=== PATIENT | male | born 1935 | race Caucasian/White ===

== ENCOUNTER 2017-07-31 14:04 | Emergency (ER) | payer OTHER ==
[~2017-07-31] VITALS: Ht 177.8 cm; Wt 71.7 kg
--- NOTE | 2017-07-31 14:04 | NUR ---
[id number] [place] [address] [place] [address] FOR AMS, BS-200, PER REPORT PT IS USUALLY A/OX3 IN THE FACILITY. LAST KNOW WELL TIME 1100. PT PLACED ON CONT CARDIAC AND POX MONITOR. TACHYCARDIC AT 140'S, 90% O2 SAT RA. SKIN IS WARM TO TOUCH, FEBRILE T-103.8 RECTALLY. ALL NEEDS ARE ATTENDED, KEPT COMFORTABLE. PENDING ER MD EVALUATION
--- NOTE | 2017-07-31 14:30 | NUR ---
18G RIGHT AC IV STARTED
--- NOTE | 2017-07-31 14:46 | NUR ---
IN AND OUT BROCK CATH DONE, URINE SAMPLE OBTAINED AND SENT TO LAB
[2017-07-31 14:55] LABS: APPEARANCE,URINE Clear (CLEAR); BILIRUBIN,URINE Negative (NEGATIVE); BLOOD, URINE Trace-lysed Ery/uL (NEGATIVE); COLOR,URINE Yellow (YELLOW); KETONES,URINE 15 (NEGATIVE); LEUKOCYTE ESTERASE ,URINE Negative (NEGATIVE); NITRITE, URINE Negative (NEGATIVE); PH,URINE 5.5 (5.0-8.0); PROTEIN,URINE Negative (NEGATIVE); UGLUCOSE Negative (NEGATIVE); UROBILINOGEN,URINE 0.2 EU/dL (0.2)
[2017-07-31 14:56] LABS: BASOPHILS # (AUTO) 0.5 /CMM (0.0-0.2); BASOPHILS % (AUTO) 2.4 % (0.0-2.0); HEMATOCRIT 33 % (39-51); HEMOGLOBIN 11.8 g/dL (13.5-17.5); LYMPHOCYTES # (AUTO) 0.4 /CMM (0.8-4.8); LYMPHOCYTES % (AUTO) 1.8 % (20.0-44.0); MEAN CORPUSCULAR HEMOGLOBIN 30 PG (26.0-33.0); MEAN CORPUSCULAR HGB CONC 35 g/dl (31.0-36.0); MEAN CORPUSCULAR VOLUME 85 fL (80-96); MONOCYTES % (AUTO) 10.2 % (2.0-12.0); NEUTROPHILS # (AUTO) 16.8 /CMM (1.8-8.9); NEUTROPHILS % (AUTO) 85.6 % (43.0-81.0); PLATELET COUNT (AUTO) 170 /CMM (150-450); RDW COEFFICIENT OF VARIATION 13.8 (11.5-15.0); RED BLOOD CELL COUNT(AUTO) 3.91 MIL/uL (4.5-6.0); WHITE BLOOD COUNT (AUTO) 19.7 K/uL (4.3-11.0)
[2017-07-31] MEDS ORDERED: IV NS 0.9% 1,000 ML BAG IV ONE (15:00)
[2017-07-31] MEDS ORDERED: ACETAMINOPHEN 650 MG/SUPP.RECT RC ONE ×2 (15:00→15:11)
[2017-07-31] MEDS ORDERED: VANCOMYCIN 1 GM in IV D5W 250 ML IV ONE (15:00)
[2017-07-31 15:03] LABS: BACTERIA,URINE None seen /HPF (None Seen); RBC,URINE 0-2 /HPF (0-2); SQUAMOUS EPITHELIAL CELL,UR Few /HPF (None Seen); WBC,URINE 0-2 /HPF (0-3)
[2017-07-31 15:04] LABS: CARBON DIOXIDE 22 mmol/L (21-32); CHLORIDE 101 mmol/L (98-107); CREATININE 1.9 mg/dL (0.6-1.3); GLUCOSE 163 mg/dL (74-106); POTASSIUM 3.9 mmol/L (3.5-5.1); SODIUM SERUM 136 mmol/L (136-145); UREA NITROGEN, BLOOD 31 mg/dL (7-18)
[2017-07-31 15:07] LABS: INR 1.06 (0.87-1.13)
[2017-07-31 15:10] LABS: ALANINE AMINOTRANSFERASE 29 U/L (12-78); ALBUMIN 3.5 g/dL (3.4-5.0); ALKALINE PHOSPHATASE 111 U/L (46-116); ASPARTATE AMINOTRANSFERASE 27 U/L (15-37); BILIRUBIN,DIRECT 0.2 mg/dL (0.0-0.2); BILIRUBIN,TOTAL 0.9 mg/dL (0.2-1.0); TOTAL PROTEIN, SERUM 7.7 g/dL (6.4-8.2)
[2017-07-31 15:12] LABS: TROPONIN I 0.021 ng/mL (0.00-0.056)
[2017-07-31] MEDS ORDERED: PIPERACILLIN /TAZOBACTAM 2.25 G in IV D5W 50 ML IV ONE (15:30)
[2017-07-31 15:31] LABS: ABG BASE EXCESS -0.6 mmol/L; ABG OXYGEN SATURATION 93.3 % (92.0-98.5); ABG PCO2 28.7 mmHg (35.0-45.0); ABG PH 7.498 (7.350-7.450); ABG PO2 69.2 mmHg (75.0-100.0); AaDO2 125.4 mmHg; COHb 0.9 % (0.5-1.5); O2Hb 92.5 % (94.0-97.0); SITE, ABG Right Radial; VENT MODE, BG NASAL CANNULA
[2017-07-31 15:38] LABS: BAND % (MANUAL) 5 % (0.0-5.0); LYMPHOCYTES % (MANUAL) 6 % (16-48); MONOCYTES % (MANUAL) 11 % (0-11.0); NEUTROPHILS % (MANUAL) 78 (42-76)
[2017-07-31] MEDS ORDERED: ASPI-1169 PO (15:44)
[2017-07-31] MEDS ORDERED: GLUC500T12 PO (15:44)
[2017-07-31] MEDS ORDERED: CRAN1CAP6 PO (15:44)
[2017-07-31] MEDS ORDERED: RAMI10CA PO (15:44)
--- NOTE | 2017-07-31 16:06 | NUR ---
DR GUTIERREZ CALLED, STUDY SPECIALIST STATED THAT HE GOT THE IMAGES VIA TEXT AND WILL CALL DR GERMAIN SOON HE STEP OUT OF SURGERY. DR GERMAIN AWARE
[2017-07-31] MEDS ORDERED: ACETAMINOPHEN 650 MG/SUPP.RECT RC PRN (18:00)
[2017-07-31] MEDS ORDERED: PIPERACILLIN /TAZOBACTAM 2.25 G in IV D5W 50 ML IV SCH (18:00)
[2017-07-31] MEDS ORDERED: ACETAMINOPHEN ES 500 MG TABLET PO PRN (18:00)
--- NOTE | 2017-07-31 20:10 | NUR ---
[facility] CALLED FOR INFO. [phone] FAX NUMBER; [phone] PHONE NUMBER
--- NOTE | 2017-07-31 20:20 | NUR ---
RT KELLER AT BEDSIDE TO SUCTION PATIENT.
--- NOTE | 2017-07-31 20:26 | NUR ---
REPORT NUMBER [id number]; PRESS NO. 1; EXT [phone]. PT TO GO TO ROOM [facility]9. [facility] TO ARRANGE FOR TRANSPORT.
--- NOTE | 2017-07-31 20:42 | NUR ---
REPORT GIVEN TO REGI STEVENSON AT [facility] FOR TRANSFER AND [facility].
[2017-07-31] MEDS ORDERED: PIPERACILLIN /TAZOBACTAM 2.25 G VIAL IV ONE (21:12)
[2017-07-31 21:29] VITALS: BP 103/66
--- NOTE | 2017-07-31 21:52 | NUR ---
ENDORSED CARE TO PRN AMBULANZ STAFF, PATIENT REMAINED ALERT AND RESPONSIVE.
--- NOTE | 2017-07-31 21:53 | NUR ---
DALLIN NOONAN STAFF RECORDED BLOOD PRESSURE AT 87/52, I VERIFIED BP AND REPORTED TO DR GERMAIN AND RECEIVED VERBAL ORDER OF 1 L NORMAL SALINE BOLUS FOR TRANSPORT. ALSO SPOKE WITH ROBERT CHARGE NURSE AT [facility] AND UPDATED HIM RE STATUS OF PATIENT.
== END 2017-07-31 21:51 | disposition short-term general hospital (02) ==
LOC: ER 14:07
DX: I62.00 Nontraumatic subdural hemorrhage, unspecified (principal); J96.20 Acute and chronic respiratory failure, unspecified whether with hypoxia or hypercapnia; A41.9 Sepsis, unspecified organism; R65.20 Severe sepsis without septic shock; N17.9 Acute kidney failure, unspecified; D64.9 Anemia, unspecified; G93.40 Encephalopathy, unspecified; G93.5 Compression of brain; I10 Essential (primary) hypertension; I70.0 Atherosclerosis of aorta; J11.1 Influenza due to unidentified influenza virus with other respiratory manifestations; R65.21 Severe sepsis with septic shock; R29.6 Repeated falls; Z79.82 Long term (current) use of aspirin
CPT/HCPCS: 31720; 36415; 36600; 70450-TC; 71045-TC; 80048-TC; 80076-TC; 81000-TC; 82803-TC; 83605-TC; 84484-TC; 85025-TC; 85730-TC; 87040-TC; 87081-TC; 87086-TC; 87400; A4606; J2543; J3370; J7060; Z7610